=== PATIENT | female | born 1990 | race Caucasian/White ===

== ENCOUNTER 2017-08-22 23:59 | Emergency (ER) | payer OTHER ==
[~2017-08-22] VITALS: Ht 160 cm; Wt 90.7 kg
[~2017-08-22 23:59] MED LIST: ACEBUTCAFT PO; ALBU90OI INH; AMOCLA875 PO; AMOX500 PO; BUPR150ER PO; CEPH500 PO; CLON.1 PO; CLON.5 PO; CRUTCH4 USE; CYCL10 PO; DOXY100 PO; HYDACE5 PO; HYOS.125 SL; IBUP800 PO; LAMO25 PO; LOPE2C PO; LORPSEER24 PO; METCAR500 PO; MIRT30 PO; NAPR500 PO; Norco 5-325 Ta1 EACH PO; ONDA4 PO; OXYC15ER PO; PRAZ2 PO; Percocet 5-3251 EACH PO; Prednisone20 MG PO; Prozac20 MG PO; RXCYCL10 PO; RXTRAM50 PO; TRAM50 PO; Veetids 500500 MG PO; Zofran8 MG PO
== END 2017-08-23 00:21 | disposition left against medical advice (07) ==
LOC: ER 23:59
DX: Z53.21 Procedure and treatment not carried out due to patient leaving prior to being seen by health care provider (principal)

== ENCOUNTER 2018-01-23 22:10 | Emergency (ER) | payer OTHER ==
[2018-01-24] MEDS ORDERED: LATUDA60 MG PO (04:56)
[2018-01-24] MEDS ORDERED: BUSP10 PO (04:57)
[2018-01-24] MEDS ORDERED: TRAZ100 PO (04:57)
== END 2018-01-23 23:26 | disposition left against medical advice (07) ==
LOC: ER 22:10
DX: Z53.21 Procedure and treatment not carried out due to patient leaving prior to being seen by health care provider (principal)

== ENCOUNTER 2018-01-24 03:45 | Emergency (ER) | payer OTHER ==
[~2018-01-24] VITALS: Ht 162.6 cm; Wt 92.5 kg
[2018-01-24] MEDS ORDERED: LATUDA60 MG PO (04:56)
[2018-01-24] MEDS ORDERED: TRAZ100 PO (04:57)
[2018-01-24] MEDS ORDERED: BUSP10 PO (04:57)
== END 2018-01-24 08:35 | disposition home or self-care (01) ==
LOC: ER 03:45
DX: F41.9 Anxiety disorder, unspecified (principal); F17.200 Nicotine dependence, unspecified, uncomplicated; Z88.2 Allergy status to sulfonamides; Z88.5 Allergy status to narcotic agent; Z79.899 Other long term (current) drug therapy
CPT/HCPCS: 99283